=== PATIENT | female | born 1945 | race Caucasian/White ===

== ENCOUNTER 2023-11-26 19:54 | Emergency (ER) | payer MEDICARE, OTHER, SELFPAY ==
[2023-11-26 19:59] VITALS: BP 153/80
[2023-11-26 20:34] LABS: ALT (SGPT) 20 U/L (0-35); AST (SGOT) 24 U/L (14-36); Albumin 4.5 g/dl (3.5-5.0); Alkaline Phosphatase 154 U/L (38-126); Blood Urea Nitrogen 12 mg/dl (7-17); Calcium 9.6 mg/dl (8.4-10.2); Carbon Dioxide 25 mmol/L (22-30); Chloride 106 mmol/L (98-107); Glucose 120 mg/dl (70-99); Potassium 3.3 mmol/L (3.5-5.1); Sodium 141 mmol/L (135-145); Total Bilirubin 0.4 mg/dl (0.2-1.3); Total Protein 7.5 g/dl (6.3-8.2); eGFR > 60.00
[2023-11-26 20:43] LABS: NT-proBNP 106 pg/ml
--- NOTE | 2023-11-26 21:23 | ED.GENMED ---
History of Present Illness
General
Chief Complaint: Back Pain
Source: patient
Exam Limitations: none
Time Seen by Provider: 11/26/23 21:09
Travel History
Have you had any contact with someone who has COVID-19?: No
Do you have any symptoms of coronavirus? Fever > 100 degrees, chills, cough, shortness of breath, sore throat, loss of taste or smell, muscle aches, or headache?: No
History of Present Illness
History of Present Illness:
See MDM
Past History
Past History
ED Past Medical History: GERD, HTN, Hypercholesterolemia and Other (Migraine headaches)
ED Past Surgical History: Cholecystectomy, Gynecological (Hysterectomy) and Other (Sinus surgery)
Social History
Tobacco: Non-smoker
Alcohol: None
Personal:
Living: with family
Employment: Employed
Family History
Family History: Hypertension
Phy Exam
Physical Exam
Physical Exam:
See MDM
Course
Orders/Labs/Results
Orders:
Orders
11/26/23 20:02
CR Lumbar Spine 2 Or 3 Views Urgent
Comment:
Reason For Exam: pain
11/26/23 20:16
Comprehensive Metabolic Panel Urgent
Magnesium Urgent
Pro-BNP [NT-proBNP] Urgent
11/26/23 21:22
Add On- LAB Urgent
Tests Added?: Magnesium
Cyclobenzaprine HCl [Flexeril] 10 mg PO NOW STA
Potassium Chloride [KCl] 40 meq PO NOW STA
11/26/23 22:02
Complete Blood Count/With Diff Urgent
11/27/23 00:11
Tramadol HCl [Ultram] 25 mg PO NOW STA
Abnormal Lab Results
11/26/23 11/26/23
20:16 22:02
WBC 11.9 H 10^3/uL
(4.8-10.8)
Hct 35.5 L %
(37.0-47.0)
Abs Immat Gran (auto) 0.1 H 10^3/uL
(0-0.05)
Absolute Neuts (auto) 8.9 H 10^3/uL
(1.4-6.5)
Lymphocytes % 18.2 L %
(20.5-51.1)
Potassium 3.3 L mmol/L
(3.5-5.1)
Creatinine 0.5 L mg/dL
(0.6-1.0)
Glucose 120 H mg/dl
(70-99)
Alkaline Phosphatase 154 H U/L
(38-126)
11/26/23 22:02
11/26/23 20:16
Vital Signs
Initial and Last Documented VS:
Initial Vital Signs
Temp Pulse Resp BP Pulse Ox
98.8 F 78 18 153/80 97
11/26/23 19:59 11/26/23 19:59 11/26/23 19:59 11/26/23 19:59 11/26/23 19:59
Last Documented Vital Signs
Temp Pulse Resp BP Pulse Ox
98.2 F 74 17 151/62 98
11/26/23 23:22 11/26/23 23:22 11/26/23 23:22 11/26/23 23:22 11/26/23 23:22
MDM/Problems Addressed
Differential Diagnosis Includes:
HPI and MDM Narrative:
78-year-old female presenting with back pain. She noted the back pain last week when she was bending over the grocery store. Symptoms appear to have resolved but it occurred again when she went back to the grocery store to pick something up. She
noted that the pain went down her legs. The pain going down her legs has since resolved. Patient now stuck with low back pain which she believes is muscle spasm. She has had back pain in the past and has tolerated Flexeril. Patient curious about
her electrolytes. She was placed on Lasix for bilateral leg edema
On exam, patient ambulating on her own without difficulty and able to get herself in bed. She does have significant edema to both legs but states this is somewhat chronic. We discussed likely lymphedema. Patient has very mild lumbar tenderness.
It appears to be paralumbar muscular spasm. Given age and complaint, will obtain x-ray. She denies any bowel or bladder issues
Physical exam
General: Well appearing and non-toxic
HEENT: protecting airway
Neck: appears supple
CV: No evidence of cyanosis
Resp: No accessory muscle use
Abd: Non-distended
Back: Lumbar muscle spasm noted
Extremities: Bilateral leg lymphedema. Distal pulses +2
Neuro: alert
Psych: Normal affect
Skin: Intact
Problems Addressed including Acute and Chronic Conditions affecting care:
1. Low back pain
Acuity: acute
Prognosis: stable
Details: Likely muscle strain. Will obtain x-ray
2. Lymphedema
Acuity: Chronic
Prognosis: stable
Details: Discussed continuing to take the Lasix
3. Hypokalemia
Acuity: acute
Prognosis: stable
Details: Likely in setting of Lasix. Will give 40 meq orally
Updates
X-ray shows age-indeterminate compression fracture. Muscle relaxant did not help. Will give tramadol and discussed follow-up with spine
Differential Diagnosis (but not limited to): Back spasm, fracture, lymphedema
Drug therapy (if applicable): OTC meds, please see d/c instruction regarding Rx drugs
Amount and/or Complexity of Data Reviewed
Clinical info obtained from: Patient
External data reviewed: N/A
Labs I independently reviewed (but not limited to): Mild hypokalemia
Radiology: X-ray independently reviewed: Lumbar compression fracture
Pulse Ox: not hypoxic
EKG independently reviewed: N/A
Dairy Inspector: N/A
Critical Care: N/A
Risk of Complication:
Social Determinants of health: Good social support
Discussed with other providers: N/A
Escalation of Care includes Admit/Obs: After being observed in the Emergency Department, pt stable for discharge.
Occasional wrong word or 'sound a like' substitutions may have occurred due to the inherent limitations of voice recognition software. Read the chart carefully and recognize, using context, where substitutions have occurred.
*Critical Care Note
Total Time (30-74mins, 75-104mins- exclusive of procedures): Not Applicable
ED Attending Note
-
Portions of this chart may have been created with voice recognition software.� Occasional wrong word or��sound alike� substitutions may have occurred due to the inherent limitations of voice recognition software.
Discharge Plan
Departure
Patient Disposition: Home (Routine Discharge)
Date of Disposition: 11/27/23
Time of Disposition: 00:12
Patient with high blood pressure during this ER visit?: Yes
Discharge Problem:
Back pain
Instructions: Low Back Pain (DC)
Prescriptions:
New
tramadol 50 mg tablet
25 mg PO BID PRN (Reason: pain) Qty: 10 0RF
No Action
omeprazole magnesium [Prilosec OTC] 20 MG tablet,delayed release (DR/EC)
20 mg PO BID
quinapril [Accupril] 40 MG tablet
40 mg PO DAILY Qty: 30 0RF
cetirizine 10 MG tablet
10 mg PO DAILY
metoprolol tartrate 25 MG tablet
50 mg PO BID
fowfitme-mzh-DY-lycopen-lutein [Centrum Silver] 1 EACH tablet
1 ea PO DAILY
guaifenesin [Mucinex] 1,200 MG tablet extended release 12hr
1,200 mg PO BID
diltiazem HCl [Cardizem] 120 MG tablet
240 mg PO DAILY
meclizine 25 MG tablet
25 mg PO Q8H PRN (Reason: vertigo) Qty: 20 0RF
Referrals:
Pratik Edwards MD [Active] -
NONE,* [Family Provider] -
Activity Restrictions/Additional Instructions:
Please return for any worsening symptoms.
You may return at any time if you have further concerns.
Please follow up with your doctor at the first available appointment, preferably this week.
Thank you for choosing [facility].
Interventions
Interventions:
*Risk Screen - Suicide Last Done: 11/26/23 21:54
*General Assessment Last Done: 11/26/23 21:52
*Neglect/Abuse Screening Last Done: 11/26/23 21:52
*ED COVID-19 Vaccine History Last Done: 11/26/23 21:55
ED-Musculoskeletal Assessment Last Done: 11/26/23 21:54
Discharge Date and Time
Print Language: URDU
[2023-11-26 21:54] VITALS: BP 157/68
[2023-11-26 21:54] LABS: Magnesium 1.8 mg/dl (1.6-2.3)
[2023-11-26] MEDS: KCL 40 MEQ PO (21:56)
[2023-11-26] MEDS: FLEXERIL 10 MG PO (21:56)
[2023-11-26 22:13] LABS: % Basophils 0.3 % (0-2); % Eosinophils 1.1 % (0-6); % Immature Granulocytes 0.4 % (0-0.5); % Lymphocytes 18.2 % (20.5-51.1); % Monocytes 4.9 % (1.7-9.3); % Neutrophils 75.1 % (42.2-75.2); Absolute Eosinophils 0.1 10^3/uL (0-0.7); Absolute Immature Granulocytes 0.1 10^3/uL (0-0.05); Absolute Lymphocytes 2.2 10^3/uL (1.2-3.4); Absolute Monocytes 0.6 10^3/uL (0.1-0.6); Absolute Neutrophils 8.9 10^3/uL (1.4-6.5); Hematocrit 35.5 % (37.0-47.0); Hemoglobin 12.2 g/dL (12.0-16.0); Mean Corp Hgb Conc. 34.4 g/dL (33.0-37.0); Mean Corpuscular Hgb 28.4 pg (27.0-31.0); Mean Corpuscular Volume 82.6 fL (81.0-99.0); Mean Platelet Volume 9.8 fL (7.4-10.4); Nucleated Red Blood Cells % 0 %; Platelet Count 241 10^3/uL (130-400); Red Cell Dist. Width 14.4 % (11.5-14.5); White Blood Cell Count 11.9 10^3/uL (4.8-10.8)
[2023-11-26 23:22] VITALS: BP 151/62
[2023-11-27] MEDS: ULTRAM 25 MG PO (00:39)
[2023-11-27 00:43] VITALS: BP 150/65
== END 2023-11-27 00:46 | disposition home or self-care (01) ==
LOC: EMR 19:54
PROVIDERS: Emergency Medicine; EMERGENCY PHYSICIAN Student in an Organized Health Care Education/Training Program
DX: M54.50 Low back pain, unspecified (principal); R60.0 Localized edema; I10 Essential (primary) hypertension; K21.9 Gastro-esophageal reflux disease without esophagitis; E78.00 Pure hypercholesterolemia, unspecified; G43.909 Migraine, unspecified, not intractable, without status migrainosus; Z90.49 Acquired absence of other specified parts of digestive tract; Z88.1 Allergy status to other antibiotic agents; Z88.8 Allergy status to other drugs, medicaments and biological substances
CPT/HCPCS: 99283; 72100; 80053; 83735; 83880; 85025

== ENCOUNTER → 2023-12-21 16:25 | Outpatient (REF) | payer MEDICARE, OTHER, SELFPAY | LOC: PAVMRI 16:25 | PROVIDERS: ATTENDING PHYSICIAN Physician Assistant Surgical | DX: M43.16 Spondylolisthesis, lumbar region (principal); M54.16 Radiculopathy, lumbar region; M54.50 Low back pain, unspecified | CPT/HCPCS: 72148 ==

== ENCOUNTER → 2023-12-24 13:16 | Outpatient (REF) | payer MEDICARE, OTHER, SELFPAY ==
[2023-12-24 16:16] LABS: ALT (SGPT) 20 U/L (0-35); AST (SGOT) 22 U/L (14-36); Blood Urea Nitrogen 13 mg/dl (7-17); Calcium 9.9 mg/dl (8.4-10.2); Carbon Dioxide 23 mmol/L (22-30); Chloride 104 mmol/L (98-107); Glucose 108 mg/dl (70-99); Sodium 138 mmol/L (135-145); eGFR > 60.00
[2023-12-24 16:29] LABS: NT-proBNP 70.2 pg/ml
[2023-12-24 16:31] LABS: Free T3 3.59 pg/ml (2.77-5.27); Free T4 1.18 ng/dl (0.78-2.19)
[2023-12-24 16:44] LABS: TSH 0.03 uIU/ml (0.47-4.68)
== END ==
LOC: HWLAB 13:16
PROVIDERS: ATTENDING PHYSICIAN Internal Medicine Endocrinology, Diabetes & Metabolism; REFERRING PHYSICIAN Internal Medicine Interventional Cardiology
DX: E04.2 Nontoxic multinodular goiter (principal); R60.9 Edema, unspecified; I50.32 Chronic diastolic (congestive) heart failure; I10 Essential (primary) hypertension
CPT/HCPCS: 36415; 80048; 83735; 83880; 84439; 84443; 84450; 84460; 84481

== ENCOUNTER 2024-05-16 18:00 | Emergency (ER) | payer MEDICARE, OTHER, SELFPAY ==
[2024-05-16 18:08] VITALS: BP 149/83
--- NOTE | 2024-05-16 20:13 | ED.GENMED ---
History of Present Illness
General
Chief Complaint: Head Injury
Time Seen by Provider: 05/16/24 19:22
History of Present Illness
History of Present Illness:
Patient is a 78-year-old woman presenting to the emergency department after she hit her head. Patient states that 3 days ago she opened the car door and it hit her head at 3:30 PM. She did notice a lump to her head however she did not fall or lose
consciousness that she did not come to the emergency department. Today she noticed that she had bruising to the inner aspects of both her eyes. Given the bruising she came in for further evaluation. She is on a baby aspirin. No blood thinners.
No bruising behind her ear. No numbness tingling. No weakness. Initially she did tell nursing that she had a headache however denied that for me.
Past History
Past History
ED Past Medical History: GERD, HTN, Hypercholesterolemia and Other (Migraine headaches)
ED Past Surgical History: Cholecystectomy, Gynecological (Hysterectomy) and Other (Sinus surgery)
Social History
Tobacco: Non-smoker
Alcohol: None
Personal:
Living: with family
Employment: Employed
Family History
Family History: Hypertension
Phy Exam
Physical Exam
Physical Exam:
GENERAL: no acute distress
HEENT: Small hematoma with associated bruising to the frontal scalp, extraocular muscles intact, medial canthus of bilateral eyes with ecchymoses, no signs of entrapment, dentition intact, no bruising behind ears, no other obvious trauma, swelling
and mild bruising over the bridge of the nose but with no tenderness
NECK: no midline tenderness, normal range of motion, NEXUS criteria negative, no other obvious trauma
CHEST: no tenderness, no flail segment, no subcutaneous emphysema, no other obvious trauma
LUNGS: clear to auscultation bilaterally
CARDIOVASCULAR: regular rate and rhythm
ABDOMEN: soft, non-tender, no masses, no other obvious trauma
PELVIS: stable, no obvious injury
EXTREMITIES: moving all extremities, distal pulses intact, no other obvious trauma
NEUROLOGIC: awake, alert x 3, no focal deficits
Course
Orders/Labs/Results
Orders:
Orders
05/16/24 19:14
CT Head W/o Iv Contrast Urgent
Comment:
Reason For Exam: head injury
Vital Signs
Initial and Last Documented VS:
Initial Vital Signs
Temp Pulse Resp BP Pulse Ox
98.1 F 63 18 149/83 99
05/16/24 18:08 05/16/24 18:08 05/16/24 18:08 05/16/24 18:08 05/16/24 18:08
Last Documented Vital Signs
Temp Pulse Resp BP Pulse Ox
98.1 F 63 18 149/83 99
05/16/24 18:08 05/16/24 18:08 05/16/24 18:08 05/16/24 18:08 05/16/24 18:08
MDM/Problems Addressed
Differential Diagnosis Includes:
Patient is a 78-year-old woman presenting to the emergency department with bruising after she hit her head on a car door 3 days ago. Vitals are unremarkable and exam does show small hematoma to the frontal scalp as well as ecchymoses to the medial
canthus of bilateral eyes. Will rule out traumatic intracranial injury and skull fracture. will obtain CT scan.
*Critical Care Note
Total Time (30-74mins, 75-104mins- exclusive of procedures): Not Applicable
Update Note
Update Note:
CT scan of the head per my interpretation with no acute hemorrhage. Per the official read no skull fracture. Will discharge patient at this time. Strict return precautions
ED Attending Note
-
Portions of this chart may have been created with voice recognition software.� Occasional wrong word or��sound alike� substitutions may have occurred due to the inherent limitations of voice recognition software.
Discharge Plan
Departure
Patient Disposition: Home (Routine Discharge)
Date of Disposition: 05/16/24
Time of Disposition: 20:31
Patient with high blood pressure during this ER visit?: Yes
Discharge Problem:
Head injury
Instructions: Head Injury in Adults (DC)
Prescriptions:
No Action
omeprazole magnesium [Prilosec OTC] 20 MG tablet,delayed release (DR/EC)
20 mg PO BID
quinapril [Accupril] 40 MG tablet
40 mg PO DAILY Qty: 30 0RF
cetirizine 10 MG tablet
10 mg PO DAILY
metoprolol tartrate 25 MG tablet
50 mg PO BID
cmnimyfv-aiz-AY-lycopen-lutein [Centrum Silver] 1 EACH tablet
1 ea PO DAILY
guaifenesin [Mucinex] 1,200 MG tablet extended release 12hr
1,200 mg PO BID
diltiazem HCl [Cardizem] 120 MG tablet
240 mg PO DAILY
meclizine 25 MG tablet
25 mg PO Q8H PRN (Reason: vertigo) Qty: 20 0RF
tramadol 50 mg tablet
25 mg PO BID PRN (Reason: pain) Qty: 10 0RF
Referrals:
NONE,* [Family Provider] -
Interventions
Interventions:
*General Assessment Last Done: 05/16/24 20:03
*Neglect/Abuse Screening Last Done: 05/16/24 20:03
ED- Neurological Assessment Last Done: 05/16/24 20:03
ED-Skin Assessment Last Done: 05/16/24 20:03
Discharge Date and Time
Print Language: GREEK
[2024-05-16 21:28] VITALS: BP 135/66
== END 2024-05-16 21:30 | disposition home or self-care (01) ==
LOC: EMR 18:00
PROVIDERS: EMERGENCY PHYSICIAN Student in an Organized Health Care Education/Training Program
DX: S09.90XA Unspecified injury of head, initial encounter (principal); W23.0XXA Caught, crushed, jammed, or pinched between moving objects, initial encounter; K21.9 Gastro-esophageal reflux disease without esophagitis; I10 Essential (primary) hypertension; E78.00 Pure hypercholesterolemia, unspecified; Z82.49 Family history of ischemic heart disease and other diseases of the circulatory system; Z90.49 Acquired absence of other specified parts of digestive tract; Z90.710 Acquired absence of both cervix and uterus
CPT/HCPCS: 99284; 70450

== ENCOUNTER → 2024-08-01 12:04 | Outpatient (REF) | payer MEDICARE, OTHER, SELFPAY ==
[2024-08-01 15:15] LABS: % Basophils 0.6 % (0-2); % Eosinophils 1.1 % (0-6); % Immature Granulocytes 0.3 % (0-0.5); % Lymphocytes 22.8 % (20.5-51.1); % Monocytes 5.4 % (1.7-9.3); % Neutrophils 69.8 % (42.2-75.2); Absolute Basophils 0.1 10^3/uL (0-0.2); Absolute Eosinophils 0.1 10^3/uL (0-0.7); Absolute Monocytes 0.5 10^3/uL (0.1-0.6); Absolute Neutrophils 6.2 10^3/uL (1.4-6.5); Hematocrit 40.7 % (37.0-47.0); Mean Corp Hgb Conc. 31.9 g/dL (33.0-37.0); Mean Corpuscular Volume 87.5 fL (81.0-99.0); Mean Platelet Volume 9.8 fL (7.4-10.4); Nucleated Red Blood Cells % 0 %; Platelet Count 243 10^3/uL (130-400); Red Blood Cell Count 4.65 10^6/uL (4.20-5.40); Red Cell Dist. Width 14.3 % (11.5-14.5); White Blood Cell Count 8.8 10^3/uL (4.8-10.8)
[2024-08-01 15:27] LABS: ALT (SGPT) 18 U/L (0-35); AST (SGOT) 21 U/L (14-36); Albumin 4.4 g/dl (3.5-5.0); Alkaline Phosphatase 112 U/L (38-126); Blood Urea Nitrogen 11 mg/dl (7-17); Calcium 9.7 mg/dl (8.4-10.2); Carbon Dioxide 27 mmol/L (22-30); Chloride 101 mmol/L (98-107); Glucose 106 mg/dl (70-99); HDL Cholesterol 64 mg/dl; LDL Cholesterol, Calculated 72 mg/dl; Potassium 4.2 mmol/L (3.5-5.1); Sodium 138 mmol/L (135-145); Total Bilirubin 0.3 mg/dl (0.2-1.3); Total Cholesterol 156 mg/dl (50-199); Total Protein 7.1 g/dl (6.3-8.2); Triglyceride 102 mg/dl (10-149); Very Low Density Lipoprotein 20 mg/dl (0-30); eGFR > 60.00
[2024-08-02 11:32] LABS: Glycohemoglobin (HgbA1c) 5.5 % (4.0-5.6)
== END ==
LOC: HWLAB 12:04
PROVIDERS: ATTENDING PHYSICIAN Internal Medicine Interventional Cardiology
DX: I10 Essential (primary) hypertension (principal); R60.9 Edema, unspecified; R06.09 Other forms of dyspnea; E78.2 Mixed hyperlipidemia; R73.09 Other abnormal glucose
CPT/HCPCS: 36415; 80053; 80061; 83036; 85025

== ENCOUNTER 2024-11-07 18:15 | Emergency (ER) | payer MEDICARE, OTHER, SELFPAY ==
[2024-11-07 18:15] VITALS: BMI 45.7
[2024-11-07 18:20] VITALS: BP 159/105
[2024-11-07 18:41] LABS: % Basophils 0.4 % (0-2); % Eosinophils 2.2 % (0-6); % Immature Granulocytes 0.3 % (0-0.5); % Lymphocytes 18.7 % (20.5-51.1); % Monocytes 6.2 % (1.7-9.3); % Neutrophils 72.2 % (42.2-75.2); Absolute Basophils 0.1 10^3/uL (0-0.2); Absolute Eosinophils 0.3 10^3/uL (0-0.7); Absolute Lymphocytes 2.3 10^3/uL (1.2-3.4); Absolute Monocytes 0.8 10^3/uL (0.1-0.6); Absolute Neutrophils 8.9 10^3/uL (1.4-6.5); Hematocrit 40.1 % (37.0-47.0); Hemoglobin 13.2 g/dL (12.0-16.0); Mean Corp Hgb Conc. 32.9 g/dL (33.0-37.0); Mean Corpuscular Hgb 28.4 pg (27.0-31.0); Mean Corpuscular Volume 86.2 fL (81.0-99.0); Nucleated Red Blood Cells % 0 %; Platelet Count 248 10^3/uL (130-400); Red Blood Cell Count 4.65 10^6/uL (4.20-5.40); Red Cell Dist. Width 14.2 % (11.5-14.5); White Blood Cell Count 12.4 10^3/uL (4.8-10.8)
[2024-11-07 18:52] LABS: ALT (SGPT) 17 U/L (0-35); AST (SGOT) 18 U/L (14-36); Albumin 4.3 g/dl (3.5-5.0); Alkaline Phosphatase 110 U/L (38-126); Blood Urea Nitrogen 15 mg/dl (7-17); Calcium 9.7 mg/dl (8.4-10.2); Carbon Dioxide 28 mmol/L (22-30); Chloride 104 mmol/L (98-107); Glucose 103 mg/dl (70-99); Potassium 3.8 mmol/L (3.5-5.1); Sodium 140 mmol/L (135-145); Total Bilirubin 0.5 mg/dl (0.2-1.3); Total Protein 7.2 g/dl (6.3-8.2); eGFR > 60.00
--- NOTE | 2024-11-07 21:43 | ED.GENMED ---
History of Present Illness
General
Chief Complaint: Skin Problem
Source: patient
Exam Limitations: none
Time Seen by Provider: 11/07/24 20:14
Nursing documentation reviewed up to this point in time: agreed with
History of Present Illness
History of Present Illness:
The patient is a pleasant 79-year-old female with a past medical history of chronic bilateral leg lymphedema who presents with swelling and redness of the anterior aspect of her right lower leg. Patient reports that she developed an itchy rash on
the front of her left lower leg about 2 weeks ago. Patient reports that the rash and itching resolved with a steroid cream. Patient reports that she then felt itchy on her right lower leg a few days ago. Patient reports that she thought it would
get better with a steroid cream so she applied the cream. Patient reports that it remained itchy and over the last 2 to 3 days, she has noticed redness and warmth of her right lower leg. Patient denies weakness and numbness of her legs. She
denies fevers and chills. Patient denies calf pain. She denies a history of DVT and PE
Past History
Past History
ED Past Medical History: GERD, HTN, Hypercholesterolemia and Other (Migraine headaches)
ED Past Surgical History: Cholecystectomy, Gynecological (Hysterectomy) and Other (Sinus surgery)
Social History
Tobacco: Non-smoker
Alcohol: None
Drug: None
Personal:
Living: with family
Employment: Employed
Family History
Family History: Hypertension
Review of Systems
Review of Systems
Allergies reviewed?: Yes
All Other Systems: ROS reviewed and negative except as documented in HPI and ROS
Constitutional: Reports no symptoms
EENT: Reports no symptoms
Respiratory: Reports no symptoms
Cardiac: Reports no symptoms
ABD/GI: Reports no symptoms
: Reports no symptoms
Musculoskeletal: Reports edema (Chronic)
Skin: Reports itching, rash and other
Neurological: Reports no symptoms
Endocrine: Reports no symptoms
Hematologic/Lymphatic: Reports no symptoms
Psychiatric: Reports no symptoms
Phy Exam
Physical Exam
Physical Exam:
Physical Exam
General: no apparent distress, not acutely ill
Neck: supple. no meningeal signs. normal posterior pharynx
Heart: s1/s2 regular rate and rhythm, no murmur. equal radial pulses.
Lungs: no acute respiratory distress. clear bilaterally
Abdomen: normal bowel sounds. not tender. no CVAT
Neuro: alert and oriented. no focal neurological deficits
Skin: no rash
Psychiatric: well kept. interactive and cooperative
Extremities: Lymphedema bilateral lower extremities. Negative Homans' sign. Circular area of erythema and warmth of anterior right mid lower leg. No sign of ringworm or erythema migrans. Strong pulses of bilateral feet
Course
Orders/Labs/Results
Orders:
Orders
11/07/24 18:30
Complete Blood Count/With Diff Urgent
Comprehensive Metabolic Panel Urgent
11/07/24 21:23
CeFAZolin 2 GRAM [Ancef] 2 grams in 10 ml IV NOW
Abnormal Lab Results
11/07/24
18:30
WBC 12.4 H 10^3/uL
(4.8-10.8)
MCHC 32.9 L g/dL
(33.0-37.0)
Absolute Neuts (auto) 8.9 H 10^3/uL
(1.4-6.5)
Absolute Monos (auto) 0.8 H 10^3/uL
(0.1-0.6)
Lymphocytes % 18.7 L %
(20.5-51.1)
Glucose 103 H mg/dl
(70-99)
11/07/24 18:30
11/07/24 18:30
Vital Signs
Initial and Last Documented VS:
Initial Vital Signs
Temp Pulse Resp BP Pulse Ox
98.0 F 74 16 159/105 98
11/07/24 18:20 11/07/24 18:20 11/07/24 18:20 11/07/24 18:20 11/07/24 18:20
Last Documented Vital Signs
Temp Pulse Resp BP Pulse Ox
98.0 F 58 20 142/72 98
11/07/24 18:20 11/07/24 22:27 11/07/24 22:27 11/07/24 22:27 11/07/24 22:27
MDM/Problems Addressed
Differential Diagnosis Includes:
Right lower leg cellulitis, right lower leg DVT
MDM/Problems Addressed:
Patient presents with acute rash, erythema, and warmth of right anterior lower extremity
Chronic conditions affecting care:
Lymphedema
Acute Exacerbation and/or Progression of Chronic Illness:
Patient may have acute cellulitis due to persistent lymphedema of bilateral lower extremities
*Pulse Oximetry
Patient hypoxic: no
*EKG
Interpreted by ED Provider?: NA
*Comb Tender Interpretation
Rate: Comb Tender- N/A
*Critical Care Note
Total Time (30-74mins, 75-104mins- exclusive of procedures): Not Applicable
Data Reviewed
Review of Other/Old Records Reveals: Discharge Summary (Discharge summary reviewed from 2020 when patient was admitted for vertigo)
Source: patient
Patient Management
Social determinants of health affecting care: Living situation and Strong social support
Escalation/DeEscalation of care consider admission/obs:
I offered the patient admission to the hospital explaining that her white blood cell count is elevated and she does have a fairly extensive right anterior lower leg cellulitis, however, patient adamantly would like to try to go home. She reports
that she feels well and will return immediately if infection worsens. 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
ED Attending Note
-
Portions of this chart may have been created with voice recognition software.� Occasional wrong word or��sound alike� substitutions may have occurred due to the inherent limitations of voice recognition software.
Discharge Plan
Departure
Patient Disposition: Home (Routine Discharge)
Date of Disposition: 11/07/24
Time of Disposition: 22:12
Patient with high blood pressure during this ER visit?: Yes
Condition: Good
Covid-19: Not Applicable
Discharge Problem:
rash right lower leg, Cellulitis of right lower extremity
Instructions: Skin Rash (DC), Cellulitis (Skin Infection), Adult (DC), BLOOD PRESSURE
Prescriptions:
New
amoxicillin-pot clavulanate 875-125 mg tablet
1 tab PO BID Qty: 14 0RF
No Action
omeprazole magnesium [Prilosec OTC] 20 MG tablet,delayed release (DR/EC)
20 mg PO BID
quinapril [Accupril] 40 MG tablet
40 mg PO DAILY Qty: 30 0RF
cetirizine 10 MG tablet
10 mg PO DAILY
metoprolol tartrate 25 MG tablet
50 mg PO BID
fuiqayxd-rjw-DC-lycopen-lutein [Centrum Silver] 1 EACH tablet
1 ea PO DAILY
guaifenesin [Mucinex] 1,200 MG tablet extended release 12hr
1,200 mg PO BID
diltiazem HCl [Cardizem] 120 MG tablet
240 mg PO DAILY
meclizine 25 MG tablet
25 mg PO Q8H PRN (Reason: vertigo) Qty: 20 0RF
tramadol 50 mg tablet
25 mg PO BID PRN (Reason: pain) Qty: 10 0RF
Referrals:
NONE,* [Family Provider] -
Activity Restrictions/Additional Instructions:
Please return immediately if the redness is still spreading by tomorrow afternoon. We expect for the redness to be improved after 24 hours of antibiotics. Please return to the emergency department if this is not the case. Please return with any
fevers and/or chills.
Interventions
Interventions:
*Risk Screen - Suicide Last Done: 11/07/24 18:20
*General Assessment Last Done: 11/07/24 19:11
*Neglect/Abuse Screening Last Done: 11/07/24 18:20
*ED- Fall Risk Assessment Last Done: 11/07/24 19:11
*ED COVID-19 Vaccine History Last Done: 11/07/24 19:11
*Nursing Disposition Last Done: 11/07/24 22:31
ED-Skin Assessment Last Done: 11/07/24 19:09
Discharge Date and Time
Discharge Date/Time: 11/07/24 22:32
Print Language: CAMBODIAN
[2024-11-07] MEDS: ANCEF 10 IV (22:00)
[2024-11-07 22:27] VITALS: BP 142/72
== END 2024-11-07 22:32 | disposition home or self-care (01) ==
LOC: EMR 18:15
PROVIDERS: Emergency Medicine; EMERGENCY PHYSICIAN Emergency Medicine
DX: R21 Rash and other nonspecific skin eruption (principal); L03.115 Cellulitis of right lower limb; E78.00 Pure hypercholesterolemia, unspecified; I10 Essential (primary) hypertension; I89.0 Lymphedema, not elsewhere classified; Z82.49 Family history of ischemic heart disease and other diseases of the circulatory system; Z90.49 Acquired absence of other specified parts of digestive tract; Z90.710 Acquired absence of both cervix and uterus
CPT/HCPCS: 99283; 96374; 80053; 85025

== ENCOUNTER 2024-12-26 07:12 | Outpatient (RCR) | payer MEDICARE, OTHER, SELFPAY | END 2024-12-26 23:59 | disposition home or self-care (01) | LOC: RPT 07:12 | PROVIDERS: ATTENDING PHYSICIAN Internal Medicine Interventional Cardiology | DX: I89.0 Lymphedema, not elsewhere classified (principal); Z73.6 Limitation of activities due to disability | CPT/HCPCS: 97162; 97530 ==

== ENCOUNTER 2025-02-01 13:10 | Outpatient (RCR) | payer MEDICARE, OTHER, SELFPAY | END 2025-02-01 23:59 | disposition home or self-care (01) | LOC: RPT 13:10 | PROVIDERS: ATTENDING PHYSICIAN Internal Medicine Interventional Cardiology | DX: I89.0 Lymphedema, not elsewhere classified (principal); Z73.6 Limitation of activities due to disability | CPT/HCPCS: 29581; 97016; 97140; 97530 ==

== ENCOUNTER 2025-02-22 14:11 | Outpatient (RCR) | payer MEDICARE, OTHER, SELFPAY | END 2025-02-22 23:59 | disposition home or self-care (01) | LOC: RPT 14:11 | PROVIDERS: ATTENDING PHYSICIAN Internal Medicine Interventional Cardiology | DX: I89.0 Lymphedema, not elsewhere classified (principal); Z73.6 Limitation of activities due to disability; R26.2 Difficulty in walking, not elsewhere classified | CPT/HCPCS: 97016; 97140; 97530 ==

== ENCOUNTER → 2025-05-31 12:30 | Outpatient (REF) | payer MEDICARE, OTHER, SELFPAY | LOC: PAVMRI 12:30 | PROVIDERS: ATTENDING PHYSICIAN Physician Assistant Surgical | DX: M48.062 Spinal stenosis, lumbar region with neurogenic claudication (principal); M43.16 Spondylolisthesis, lumbar region; M54.17 Radiculopathy, lumbosacral region; M54.50 Low back pain, unspecified | CPT/HCPCS: 72148 ==